=== PATIENT | male | born 1985 | race Caucasian/White ===

== ENCOUNTER 2022-09-26 23:57 | Emergency (ER) | payer BC | END 2022-09-27 01:37 | LOC: ERS 23:57 | DX: M79.601 Pain in right arm (principal); F17.200 Nicotine dependence, unspecified, uncomplicated; F17.220 Nicotine dependence, chewing tobacco, uncomplicated | CPT/HCPCS: 99283 ==

== ENCOUNTER 2023-07-19 15:28 | Outpatient (CLI) | payer BC | END 2023-07-19 15:29 | disposition home or self-care (01) | LOC: BICRAD 15:28 | PROVIDERS: ATTEND Chiropractor | DX: M54.42 Lumbago with sciatica, left side (principal) | CPT/HCPCS: 72110 ==